=== PATIENT | female | born 1950 | race Caucasian/White ===

== ENCOUNTER 2021-01-26 13:51 | Emergency (ER) | payer BC, MEDICARE ==
[~2021-01-26] VITALS: Ht 152.4 cm; Wt 47.0 kg
[~2021-01-26 13:51] MED LIST: ALBU2.5V5 IH; AMLO-187 PO; ATOR40TA59 PO; AZIT250T6 PO; CARV25TA2 PO; CLON0.3T PO; INSU100I15 SQ; INSU100I17 SQ; INSU100I18 SQ; LEVO88TA4 PO; LISI40TA6 PO; MOME13HF2 IH; PANT40TA6 PO; PRED50TA PO; vitamin b 12 PO
[2021-01-26 14:00] VITALS: BP 147/90
--- NOTE | 2021-01-26 14:19 | PHYS DOC ---
Past History Past Medical History: Cancer, Diabetes, Hypertension, Hypothyroid Past Surgical History: Cancer Surgery Smoking: Quit Less Than 1 Year Alcohol Use: None Drug Use: None General Adult EDM: Chief Complaint: ACCIDENTAL INGESTION HPI: HPI: 70-year-old female presents after accidentally ingesting one of her pets medications. She called the middle school counselor and they were unsure about the effect on humans. Patient decided come to the emergency room. Patient does not have any symptoms or other concerns. Review of Systems: Review of Systems: Constitutional: Denies fever or chills Eyes: Denies change in visual acuity HENT: Denies nasal congestion or sore throat Respiratory: Denies cough or shortness of breath Cardiovascular: Denies chest pain or edema GI: Denies abdominal pain, nausea, vomiting, bloody stools or diarrhea : Denies dysuria Musculoskeletal: Denies back pain or joint pain Integument: Denies rash Neurologic: Denies headache, focal weakness or sensory changes Endocrine: Denies polyuria or polydipsia Lymphatic: Denies swollen glands Psychiatric: Denies depression or anxiety Allergies: Allergies: Allergies Coded Allergies Type Severity Reaction Last Updated Verified Insulin Zinc Beef Allergy Unknown 01/26/21 Yes aclidinium bromide Allergy Unknown rash 01/26/21 Yes iodine Allergy Unknown Hives 01/26/21 Yes Physical Exam: PE: Constitutional: Well developed, well nourished, no acute distress, non-toxic appearance. [] HENT: Normocephalic, atraumatic, bilateral external ears normal, oropharynx moist, no oral exudates, nose normal. [] Eyes: PERRLA, EOMI, conjunctiva normal, no discharge. [] Neck: Normal range of motion, no tenderness, supple, no stridor. [] Cardiovascular:Heart rate regular rhythm, no murmur [] Lungs & Thorax: Bilateral breath sounds clear to auscultation [] Abdomen: Bowel sounds normal, soft, no tenderness, no masses, no pulsatile m asses. [] Skin: Warm, dry, no erythema, no rash. [] Back: No tenderness, no CVA tenderness. [] Extremities: No tenderness, no cyanosis, no clubbing, ROM intact, no edema. [] Neurologic: Alert and oriented X 3, normal motor function, normal sensory function, no focal deficits noted. [] Psychologic: Affect normal, judgement normal, mood normal. [] Current Patient Data: Vital Signs: Vital Signs Date Time Temp Pulse Resp B/P (MAP) Pulse Ox O2 Delivery O2 Flow Rate FiO2 01/26/21 14:00 97.8 88 18 147/90 96 Room Air EKG: EKG: [] Radiology/Procedures: Radiology/Procedures: [] Heart Score: C/O Chest Pain: N/A Risk Factors: Risk Factors: DM, Current or recent (<one month) smoker, HTN, HLP, family history of CAD, obesity. Risk Scores: Score 0 - 3: 2.5% MACE over next 6 weeks - Discharge Home Score 4 - 6: 20.3% MACE over next 6 weeks - Admit for Clinical Observation Score 7 - 10: 72.7% MACE over next 6 weeks - Early Invasive Strategies Course & Med Decision Making: Course & Med Decision Making Pertinent Labs and Imaging studies reviewed. (See chart for details) The medication that the patient took turns out to be an animal version of an NSAID. We spoke with poison control and they said that it was not dangerous to the patient. I reassured the patient. She was grateful. She is stable for discharge at this time. [] Dragon Disclaimer: Dragon Disclaimer: This electronic medical record was generated, in whole or in part, using a voice recognition dictation system. Departure Departure: Impression: Primary Impression: Accidental drug ingestion Qualified Codes: T50.901A - Poisoning by unspecified drugs, medicaments and biological substances, accidental (unintentional), initial encounter Disposition: HOME / SELF CARE / HOMELESS Condition: STABLE Referrals: KAMALA ALCANTAR MD (PCP) Patient Instructions: Poisoning Prevention, Child LOCKPAL MCHUGH Jan 26, 2021 14:19
== END 2021-01-26 14:20 | disposition home or self-care (01) ==
LOC: ER 13:51
DX: T50.991A Poisoning by other drugs, medicaments and biological substances, accidental (unintentional), initial encounter (principal); E11.9 Type 2 diabetes mellitus without complications; I10 Essential (primary) hypertension; E03.9 Hypothyroidism, unspecified; Z87.891 Personal history of nicotine dependence; Z88.8 Allergy status to other drugs, medicaments and biological substances; Y92.89 Other specified places as the place of occurrence of the external cause
CPT/HCPCS: 99281